=== PATIENT | female | born 1995 | race Caucasian/White ===

== ENCOUNTER → 2017-07-05 | Outpatient (REF) | payer OTHER | LOC: M LAB REF 09:15 | DX: N39.0 Urinary tract infection, site not specified (principal) ==

== ENCOUNTER → 2017-10-25 | Outpatient (REF) | payer OTHER ==
[2017-10-26 12:08] LABS: CHLAMYDIA DNA AMPLIFICATION NEGATIVE (NEGATIVE); GC DNA AMPLIFICATION NEGATIVE (NEGATIVE)
== END ==
LOC: M WUC 09:03
DX: N39.0 Urinary tract infection, site not specified (principal)
CPT/HCPCS: 87088; 87186

== ENCOUNTER → 2020-06-27 | Outpatient (CLI) | payer SELFPAY ==
[~2020-06-27] MED LIST: ORTHO EVRA TOP
== END ==
LOC: M LABSMTC 09:41
PROVIDERS: ATTEND Pediatrics
DX: Z20.828 Contact with and (suspected) exposure to other viral communicable diseases (principal)

== ENCOUNTER → 2020-10-10 | Outpatient (REF) | payer BC | LOC: M PLALAB 09:33 | PROVIDERS: ATTEND Advanced Practice Midwife | DX: Z12.4 Encounter for screening for malignant neoplasm of cervix (principal); N39.0 Urinary tract infection, site not specified; N88.0 Leukoplakia of cervix uteri ==

== ENCOUNTER → 2021-09-09 | Outpatient (CLI) | payer BC | LOC: M WHC 15:09 | PROVIDERS: ATTEND Obstetrics & Gynecology | DX: O30.009 Twin pregnancy, unspecified number of placenta and unspecified number of amniotic sacs, unspecified trimester (principal); Z3A.10 10 weeks gestation of pregnancy ==

== ENCOUNTER → 2021-09-23 | Outpatient (CLI) | payer BC | LOC: M PLALAB 10:50 | PROVIDERS: ATTEND Obstetrics & Gynecology | DX: O30.009 Twin pregnancy, unspecified number of placenta and unspecified number of amniotic sacs, unspecified trimester (principal); Z3A.12 12 weeks gestation of pregnancy ==

== ENCOUNTER → 2021-10-28 | Outpatient (REF) | payer BC | LOC: M SFHCWAGY 13:04 | PROVIDERS: ATTEND Specialist | DX: Z36.9 Encounter for antenatal screening, unspecified (principal) ==

== ENCOUNTER → 2021-11-20 | Outpatient (CLI) | payer BC | LOC: M WHC 13:31 | PROVIDERS: ATTEND Specialist | DX: O30.002 Twin pregnancy, unspecified number of placenta and unspecified number of amniotic sacs, second trimester (principal); Z3A.21 21 weeks gestation of pregnancy ==

== ENCOUNTER → 2021-12-02 | Outpatient (REF) | payer BC ==
[~2021-12-02] MED LIST changes: +FOLI800T3 PO; +PRENTAB9 PO; +SING10TA32 PO
== END ==
LOC: M PLALAB 10:32
PROVIDERS: ATTEND Specialist
DX: O30.042 Twin pregnancy, dichorionic/diamniotic, second trimester (principal)

== ENCOUNTER 2021-12-06 15:05 | Outpatient (CLI) | payer BC ==
[~2021-12-06] VITALS: Ht 162.6 cm; Wt 73.7 kg
[~2021-12-06 15:05] MED LIST changes: -FOLI800T3 PO; -PRENTAB9 PO; -SING10TA32 PO
[2021-12-06] MEDS ORDERED: PRENTAB9 PO (15:19)
[2021-12-06] MEDS ORDERED: FOLI800T3 PO (15:19)
[2021-12-06] MEDS ORDERED: SING10TA32 PO (15:19)
[2021-12-06 15:26] VITALS: BP 126/76
[2021-12-06] MEDS ORDERED: HOME MED LIST COMPLETE! XX SCH (15:50)
[2021-12-06] MEDS ORDERED: BETAMETHASONE SOLUSPAN 6MG/ML 5ML VIAL (J0702 PER 3MG) IM ONE (16:10)
[2021-12-06 16:41] VITALS: BP 121/80
[2021-12-06 17:34] VITALS: BP 129/86
== END 2021-12-06 17:56 ==
LOC: M LDO 15:05
PROVIDERS: ATTEND Advanced Practice Midwife
DX: O41.02X2 Oligohydramnios, second trimester, fetus 2 (principal); O36.5922 Maternal care for other known or suspected poor fetal growth, second trimester, fetus 2; O40.2XX1 Polyhydramnios, second trimester, fetus 1; O30.042 Twin pregnancy, dichorionic/diamniotic, second trimester; Z3A.23 23 weeks gestation of pregnancy
CPT/HCPCS: 59025; 87426; 96372; J0702

== ENCOUNTER → 2021-12-06 | Outpatient (CLI) | payer BC | LOC: M RAD 13:30 | PROVIDERS: ATTEND Specialist | DX: O30.042 Twin pregnancy, dichorionic/diamniotic, second trimester (principal); Z3A.23 23 weeks gestation of pregnancy; O32.2XX2 Maternal care for transverse and oblique lie, fetus 2; O36.5922 Maternal care for other known or suspected poor fetal growth, second trimester, fetus 2 ==

== ENCOUNTER → 2022-07-28 | Outpatient (REF) | payer BC ==
[~2022-07-28] MED LIST changes: +FOLI800T3 PO; +PRENTAB9 PO; +SING10TA32 PO
== END ==
LOC: M SFHCWAGY 12:40
PROVIDERS: ATTEND Specialist
DX: N39.0 Urinary tract infection, site not specified (principal); Z12.4 Encounter for screening for malignant neoplasm of cervix

== ENCOUNTER → 2024-09-26 | Outpatient (CLI) | payer BC ==
[~2024-09-26] MED LIST changes: +MONT-5 PO; -SING10TA32 PO
== END ==
LOC: M PLALAB 14:46
PROVIDERS: ATTEND Specialist
DX: N91.2 Amenorrhea, unspecified (principal)

== ENCOUNTER → 2024-10-11 | Outpatient (CLI) | payer BC | LOC: M PLALAB 15:05 | PROVIDERS: ATTEND Specialist | DX: N92.6 Irregular menstruation, unspecified (principal) ==

== ENCOUNTER → 2024-11-09 | Outpatient (REF) | payer BC | LOC: M PLALAB 15:13 | PROVIDERS: ATTEND Advanced Practice Midwife | DX: Z34.81 Encounter for supervision of other normal pregnancy, first trimester (principal) ==

== ENCOUNTER → 2024-11-09 | Outpatient (CLI) | payer BC ==
[2024-11-09 17:14] LABS: HEMATOCRIT 33.1 % (36.0-47.0); HEMOGLOBIN 11.3 g/dl (12.0-15.5); MEAN CORPUSCULAR HEMOGLOBIN 32.1 pg (27.0-33.0); MEAN CORPUSCULAR HGB CONC 34.1 g/dl (32.0-36.5); PLATELET COUNT, AUTOMATED 111 10^3/uL (150-450); RED BLOOD COUNT 3.52 10^6/uL (4.00-5.40); WHITE BLOOD COUNT 4.6 10^3/uL (4.0-10.0)
[2024-11-09 18:12] LABS: HIV 1&2 SCREEN NEGATIVE (NEGATIVE)
[2024-11-09 18:20] LABS: HEPATITIS C VIRUS ABY INDEX 0.12 INDEX (<0.8)
[2024-11-09 18:42] LABS: GC DNA AMPLIFICATION NEGATIVE (NEGATIVE)
== END ==
LOC: M PLALAB 15:22
PROVIDERS: ATTEND Advanced Practice Midwife
DX: Z34.81 Encounter for supervision of other normal pregnancy, first trimester (principal); Z3A.00 Weeks of gestation of pregnancy not specified

== ENCOUNTER → 2025-01-19 | Outpatient (CLI) | payer BC | LOC: M WHC 15:13 | PROVIDERS: ATTEND Advanced Practice Midwife | DX: O28.3 Abnormal ultrasonic finding on antenatal screening of mother (principal); Z3A.21 21 weeks gestation of pregnancy ==

== ENCOUNTER → 2025-02-02 | Outpatient (CLI) | payer BC | LOC: M WHC 12:42 | PROVIDERS: ATTEND Advanced Practice Midwife | DX: Z36.89 Encounter for other specified antenatal screening (principal) ==

== ENCOUNTER → 2025-03-16 | Outpatient (CLI) | payer BC | LOC: M WHC 14:37 | PROVIDERS: ATTEND Obstetrics & Gynecology | DX: Z34.80 Encounter for supervision of other normal pregnancy, unspecified trimester (principal) ==

== ENCOUNTER → 2025-04-25 | Outpatient (CLI) | payer BC ==
[2025-04-25 19:13] LABS: ALT/SGPT 59 U/L (7.0-40); AST/SGOT 40 U/L (<34); CALCIUM LEVEL 8.6 MG/DL (8.5-10.1); CARBON DIOXIDE LEVEL 24 MMOL/L (20-31); CHLORIDE LEVEL 107 MMOL/L (98-107); CREATININE FOR GFR 0.48 MG/DL (0.55-1.30); GLOMERULAR FILTRATION RATE > 90.0 (>60); POTASSIUM SERUM 3.5 MMOL/L (3.5-5.1); SODIUM LEVEL 142 MMOL/L (136-145)
== END ==
LOC: M PLALAB 15:06
PROVIDERS: ATTEND Nurse Practitioner Family
DX: L29.9 Pruritus, unspecified (principal)

== ENCOUNTER → 2025-05-04 | Outpatient (CLI) | payer BC ==
[~2025-05-04] MED LIST changes: +ACET-683 PO; +COLA100C5 PO; +IBUP80TA PO; +SERT-141 PO; +URSO300C3 PO
== END ==
LOC: M WHC 10:59
PROVIDERS: ATTEND Nurse Practitioner Family
DX: O26.643 Intrahepatic cholestasis of pregnancy, third trimester (principal); Z3A.00 Weeks of gestation of pregnancy not specified

== ENCOUNTER 2025-05-05 09:00 | Inpatient (IN) | payer BC ==
[~2025-05-05] VITALS: Ht 162.6 cm; Wt 86.6 kg
[~2025-05-05 09:00] MED LIST changes: -ACET-683 PO; -COLA100C5 PO; -IBUP80TA PO; -SERT-141 PO; -URSO300C3 PO
[2025-05-05] MEDS ORDERED: URSO300C3 PO (09:18)
[2025-05-05 09:20] VITALS: BP 122/77
[2025-05-05] MEDS ORDERED: HOME MED LIST COMPLETE! XX SCH (09:25)
[2025-05-05] MEDS ORDERED: TRANEXAMIC ACID INJection 1,000 MG in NS 100 ML IV PRN (09:45)
[2025-05-05] MEDS ORDERED: OXYTOCIN DRIP 30 UNITS in IV 1 EA IV PRN (09:45)
[2025-05-05] MEDS ORDERED: METHYLERGONOVINE MALEATE 0.2 MG/ML 1 ML VIAL IM PRN (09:45)
[2025-05-05] MEDS ORDERED: CARBOPROST TROMETHAMINE 250 MCG/ML AMP IM PRN (09:45)
[2025-05-05 10:22] LABS: PLATELET COUNT, AUTOMATED 132 10^3/uL (150-450)
[2025-05-05] MEDS ORDERED: SERT-141 PO (10:29)
[2025-05-05 11:14] LABS: HIV 1&2 SCREEN NEGATIVE (NEGATIVE)
[2025-05-05] MEDS: AZITHROMYCIN INJ 500 MG, VIAL MATE ADAPTER 1 EACH in NS 250 ML IV ONE (11:15)
[2025-05-05] MEDS: ceFAZolin SODIUM 2 GM in DEXTROSE 5% (D5W) ADV/MINI-BAG 50 ML IV ONE (11:15)
[2025-05-05] MEDS: LR 1,000 ML IV SCH (11:16)
[2025-05-05] MEDS: BICITRA 30 ML SOLN UDC PO ONE (11:16)
[2025-05-05 11:18] VITALS: BP 123/80
[2025-05-05 11:21] LABS: HEPATITIS C VIRUS ABY INDEX < 0.02 INDEX (<0.8)
[2025-05-05] MEDS: SCOPOLAMINE 1MG TRANSDERMAL PATCH TOP ONE (12:06)
[2025-05-05] MEDS ORDERED: OXYTOCIN 30UNITS IN 0.9% NaCl 500ML IV BAG IV ONE (12:11)
[2025-05-05] MEDS ORDERED: MORPHINE PRES-FREE INJ 10 MG/10 ML VIAL As Ordered ONE (12:11)
[2025-05-05] MEDS ORDERED: PHENYLephrine 500MCG 5ML (100MCG/ML) SYRINGE As Ordered ONE (12:11)
[2025-05-05] MEDS ORDERED: ONDANSETRON 4MG/2ML VIAL As Ordered ONE (12:11)
[2025-05-05] MEDS ORDERED: ACETAMINOPHEN 1000MG/100ML IV BAG As Ordered ONE (12:32)
[2025-05-05] MEDS ORDERED: KETOROLAC 30 MG/ML 1 ML VIAL As Ordered ONE (12:55)
[2025-05-05] MEDS ORDERED: diphenhydrAMINE 50 MG/ML VIAL IV PRN (13:10)
[2025-05-05] MEDS ORDERED: **NOTE PATIENT COMMENT** MISC XX SCH (13:10)
[2025-05-05] MEDS ORDERED: ONDANSETRON 4MG/2ML VIAL IV PRN (13:10)
[2025-05-05] MEDS: SLF 3 ML SYR IV SCH (13:10)
[2025-05-05] MEDS ORDERED: NALOXONE INJ 0.4 MG/1 ML VIAL IV PRN ×2 (13:10)
[2025-05-05] MEDS ORDERED: RHOGAM 300MCG (1500IU) INJ IM SCH (13:50)
[2025-05-05 14:14] LABS: CORD GAS ABE A -6.9; CORD GAS HCO3 A 20.8 MMOL/L; CORD GAS O2 SAT A 26.3 %; CORD GAS PCO2 A 50.1 mmHg; CORD GAS PH A 7.237 UNITS; CORD GAS PO2 A 15.7 mmHg; CORD GAS SBC A 17.4 MMOL/L; CORD GAS TCO2 A 22.4 MMOL/L
[2025-05-05 14:15] LABS: CORD GAS ABE V -4.8; CORD GAS HCO3 V 20.5 MMOL/L; CORD GAS O2 SAT V 56.6 %; CORD GAS PCO2 V 38.7 mmHg; CORD GAS PH V 7.341 UNITS; CORD GAS PO2 V 23.8 mmHg; CORD GAS SBC V 19.6 MMOL/L; CORD GAS TCO2 V 21.6 MMOL/L
[2025-05-05 14:25] VITALS: TEMP 97
[2025-05-05] MEDS: OXYTOCIN DRIP 30 UNITS in IV 1 EA IV SCH (14:44)
[2025-05-05 16:30] VITALS: BP 107/70; O2SAT 98
[2025-05-05 17:11] VITALS: BP 110/81; O2SAT 98
[2025-05-05 18:00] VITALS: BP 112/71; O2SAT 98
[2025-05-05] MEDS: KETOROLAC 30 MG/ML 1 ML VIAL IV SCH (19:22)
[2025-05-06 01:15] VITALS: BP 114/63; O2SAT 96
[2025-05-06 06:15] VITALS: BP 110/71; O2SAT 97
[2025-05-06] MEDS: ACETAMINOPHEN 500 MG TAB PO PRN (06:29)
[2025-05-06 07:37] LABS: PLATELET COUNT, AUTOMATED 102 10^3/uL (150-450)
[2025-05-06] MEDS: PRENATAL VITAMINS CHEWABLE TABLET PO SCH (09:00)
[2025-05-06 10:00] VITALS: BP 101/60; O2SAT 100
[2025-05-06] MEDS: SIMETHICONE 80MG CHEW TAB PO PRN (10:26)
[2025-05-06] MEDS: DOCUSATE SODIUM 100 MG CAPSULE PO PRN (10:26)
[2025-05-06 14:00] VITALS: BP 119/68; O2SAT 97
[2025-05-06] MEDS: IBUPROFEN 800 MG TAB PO SCH (15:13)
[2025-05-06 18:00] VITALS: BP 116/69; O2SAT 98
[2025-05-06 22:00] VITALS: BP 101/66; O2SAT 98
[2025-05-07 02:00] VITALS: BP 129/70; O2SAT 98
[2025-05-07 06:00] VITALS: BP 124/70; O2SAT 97
[2025-05-07 06:26] LABS: PLATELET COUNT, AUTOMATED 111 10^3/uL (150-450)
[2025-05-07] MEDS: MEASLES,MUMPS,RUBELLA VACCINE INJ (MMR-II) SC.IMMUN ONE (09:00)
[2025-05-07] MEDS: FERROUS SULFATE 325 MG TAB PO SCH (09:55)
[2025-05-07] MEDS ORDERED: IBUP80TA PO (12:51)
[2025-05-07] MEDS ORDERED: COLA100C5 PO (12:51)
[2025-05-07] MEDS ORDERED: ACET-683 PO (12:51)
== END 2025-05-07 13:45 | disposition home or self-care (01) | DRG 540 ==
LOC: M LDO 09:00 → M LDI 09:47 → M OBS 15:21
PROVIDERS: ADMIT Advanced Practice Midwife; ATTEND Obstetrics & Gynecology
PROC: 10D00Z1 Extraction of Products of Conception, Low, Open Approach (ICD-10-PCS; principal; 2025-05-05 12:27)
DX: O42.013 Preterm premature rupture of membranes, onset of labor within 24 hours of rupture, third trimester (principal); Z37.0 Single live birth; O34.211 Maternal care for low transverse scar from previous cesarean delivery; Z3A.35 35 weeks gestation of pregnancy